=== PATIENT | female | born 1960 | race Two or more races ===

== ENCOUNTER 2023-04-14 04:30 | Inpatient (IN) | payer MEDICARE, OTHER ==
[~2023-04-14] VITALS: Ht 154.9 cm; Wt 53.5 kg
[2023-04-14 09:29] VITALS: BP 115/66; TEMP 98.4; O2SAT 98
[2023-04-14] MEDS ORDERED: TEMAZEPAM 7.5 MG CAPSULE PO PRN (10:30)
[2023-04-14] MEDS ORDERED: MAGNESIUM HYDROXIDE 30 ML UDC PO PRN (10:30)
[2023-04-14] MEDS ORDERED: ACETAMINOPHEN 325 MG TABLET PO PRN (10:30)
[2023-04-14] MEDS ORDERED: MAG HYDROX/AL HYDROX/SIMETH 30 ML UDC PO PRN (10:30)
[2023-04-14] MEDS: BLOOD SUGAR DIAGNOSTIC 1 EACH STRIP IN ONE (10:43)
[2023-04-14] MEDS ORDERED: hydrALAZINE HCL 25 MG TABLET PO PRN (11:30)
[2023-04-14] MEDS: risperiDONE-M 0.5 MG TAB.RAPDIS PO SCH (13:00)
[2023-04-14] MEDS ORDERED: MELO-105 PO (13:12)
[2023-04-14] MEDS ORDERED: TRAM50TA2 PO (13:12)
[2023-04-14] MEDS ORDERED: MEGE400O5 PO (13:12)
[2023-04-14] MEDS ORDERED: SITA50TA PO (13:12)
[2023-04-14] MEDS ORDERED: LOPE2TAB23 PO (13:12)
[2023-04-14] MEDS ORDERED: ONDA4TAB5 PO (13:12)
[2023-04-14] MEDS ORDERED: MULT-366 PO (13:12)
[2023-04-14] MEDS ORDERED: METF-440 PO (13:12)
[2023-04-14] MEDS ORDERED: POLY50DR EACHEYE (13:12)
[2023-04-14] MEDS ORDERED: OXYB5TAB16 PO (13:12)
[2023-04-14] MEDS ORDERED: MAGN400T8 PO (13:12)
[2023-04-14] MEDS ORDERED: ACET-868 PO (13:12)
[2023-04-14] MEDS ORDERED: GUAI-1189 PO (13:12)
[2023-04-14] MEDS ORDERED: DOCU100T2 PO (13:12)
[2023-04-14] MEDS ORDERED: CALC-343 PO (13:12)
[2023-04-14] MEDS ORDERED: METO-357 PO (13:12)
[2023-04-14] MEDS ORDERED: LEVO50TA PO (13:12)
[2023-04-14] MEDS ORDERED: SIME80TA66 PO (13:12)
[2023-04-14 16:00] VITALS: BP 105/54; TEMP 98.6; O2SAT 98
[2023-04-14 20:00] VITALS: BP 112/71; TEMP 98.1; O2SAT 100
[2023-04-14 20:06] VITALS: BP 112/71; TEMP 98.1; O2SAT 100
[2023-04-15 08:00] VITALS: BP 139/89; TEMP 97.6; O2SAT 98
[2023-04-15 15:29] LABS: CHOLESTEROL 186 mg/dL (<200); HDL CHOLESTEROL 50 mg/dL (40-60); LDL 116 mg/dL (0-99); TRIGLYCERIDES 122 mg/dL (30-150)
[2023-04-15 15:30] LABS: ALBUMIN 3.5 g/dL (3.4-5.0); BILIRUBIN,TOTAL 0.3 mg/dL (0.2-1.0); CALCIUM, SERUM 9.1 mg/dL (8.5-10.1); CREATININE 0.8 mg/dL (0.6-1.3); POTASSIUM 3.8 mmol/L (3.5-5.1); TOTAL PROTEIN, SERUM 7.6 g/dL (6.4-8.2)
[2023-04-15 16:00] VITALS: BP 109/64; TEMP 97.8; O2SAT 99
[2023-04-15] MEDS ORDERED: POLYVINYL ALCOHOL/POVIDONE 0.4 ML DROPERETTE EACHEYE PRN (22:00)
[2023-04-15] MEDS ORDERED: TRAMADOL HCL 50 MG TABLET PO PRN (22:00)
[2023-04-15] MEDS ORDERED: SIMETHICONE 80 MG TAB.CHEW ONE (22:29)
[2023-04-15] MEDS: SIMETHICONE 80 MG TAB.CHEW PO SCH (22:32)
[2023-04-16 08:00] VITALS: BP 117/72; TEMP 97.8; O2SAT 100
[2023-04-16] MEDS: METFORMIN 500 MG TABLET PO SCH (08:42)
[2023-04-16] MEDS: LEVOTHYROXINE SODIUM 50 MCG TABLET PO SCH (08:43)
[2023-04-16] MEDS: MAGNESIUM OXIDE 400 MG TABLET PO SCH (08:47)
[2023-04-16] MEDS: MEGESTROL ACETATE SUSP 400 MG/10 ML UDC PO SCH (08:47)
[2023-04-16] MEDS: MELOXICAM 7.5 MG TABLET PO SCH (08:48)
[2023-04-16] MEDS: LINAGLIPTIN 5 MG TABLET PO SCH (08:48)
[2023-04-16] MEDS: MULTIVITAMINS,THERAGRAN 1 UDTAB TABLET PO SCH (08:48)
[2023-04-16] MEDS: DOCUSATE SODIUM 100 MG CAPSULE PO SCH (08:48)
[2023-04-16] MEDS: CALCIUM CARBONATE 500 MG TAB.CHEW PO SCH (08:48)
[2023-04-16] MEDS: OXYBUTYNIN CHLORIDE 5 MG TABLET PO SCH (08:49)
[2023-04-16] MEDS: METOPROLOL SUCCINATE 50 MG TAB.SR.24H PO SCH (08:51)
[2023-04-16] MEDS: BENZTROPINE MESYLATE (1 MG) 1 MG TABLET PO SCH (12:02)
[2023-04-16 16:00] VITALS: BP 100/69; TEMP 98; O2SAT 99
[2023-04-16 20:00] VITALS: BP 102/61; TEMP 97.9; O2SAT 100
[2023-04-16] MEDS: risperiDONE 1 MG TABLET PO SCH (21:07)
[2023-04-17 08:00] VITALS: BP 145/79; TEMP 98.6; O2SAT 100
[2023-04-17] MEDS: risperiDONE-M 0.5 MG TAB.RAPDIS PO SCH (08:04)
[2023-04-17 16:00] VITALS: BP 128/72; TEMP 98.1; O2SAT 100
[2023-04-17 20:00] VITALS: BP 125/74; TEMP 98.1; O2SAT 100
[2023-04-17] MEDS: ATORVASTATIN 10 MG TABLET PO SCH (22:22)
[2023-04-18 08:00] VITALS: BP 99/75; TEMP 98; O2SAT 100
[2023-04-18 16:00] VITALS: BP 106/66; TEMP 97.8; O2SAT 97
[2023-04-18 21:08] VITALS: BP 116/64; TEMP 98.2; O2SAT 98
[2023-04-19 08:00] VITALS: BP 111/99; TEMP 98.1; O2SAT 100
[2023-04-19 16:00] VITALS: BP 114/72; TEMP 98; O2SAT 100
[2023-04-19] MEDS: risperiDONE-M 0.5 MG TAB.RAPDIS PO SCH (21:18)
[2023-04-19 21:51] VITALS: BP 123/82; TEMP 98; O2SAT 100
[2023-04-20 08:00] VITALS: BP 125/69; TEMP 98.6; O2SAT 100
[2023-04-20] MEDS: risperiDONE-M 0.5 MG TAB.RAPDIS PO SCH (13:00)
[2023-04-20] MEDS: BENZTROPINE MESYLATE (1 MG) 1 MG TABLET PO SCH (13:00)
[2023-04-20 16:00] VITALS: BP 109/56; TEMP 98.7; O2SAT 99
[2023-04-20 20:22] VITALS: BP 111/67; TEMP 97.9; O2SAT 100
[2023-04-21 08:00] VITALS: BP 100/72; TEMP 98.1; O2SAT 99
[2023-04-21 16:00] VITALS: BP 112/61; TEMP 98.6; O2SAT 100
[2023-04-22 08:00] VITALS: BP 111/64; TEMP 98.1; O2SAT 100
[2023-04-22 16:00] VITALS: BP 121/81; TEMP 98.1; O2SAT 98
[2023-04-23 08:00] VITALS: BP 114/73; TEMP 98.9; O2SAT 100
[2023-04-23 16:00] VITALS: BP 116/91; TEMP 98; O2SAT 99
[2023-04-23 20:00] VITALS: BP 113/78; TEMP 98.1; O2SAT 100
[2023-04-24 08:00] VITALS: BP 107/63; TEMP 98; O2SAT 100
[2023-04-24 16:00] VITALS: BP_SYST 101; BP_SYST 107; BP_DIAS 50; BP_DIAS 76; TEMP 97.6; TEMP 97.9; O2SAT 100; O2SAT 97
[2023-04-24 20:00] VITALS: BP 108/52; TEMP 98.1; O2SAT 99
[2023-04-25 08:00] VITALS: BP 122/75; TEMP 98.2; O2SAT 97
[2023-04-25 16:00] VITALS: BP 105/89; TEMP 98.1; O2SAT 97
[2023-04-25 20:53] VITALS: BP 108/56; TEMP 98.1; O2SAT 100
[2023-04-26 08:00] VITALS: BP 114/65; TEMP 97.9; O2SAT 99
[2023-04-26 16:00] VITALS: BP 112/62; TEMP 97.7; O2SAT 100
[2023-04-26 20:30] VITALS: BP 129/85; TEMP 98; O2SAT 100
[2023-04-27] MEDS: LORAZEPAM 0.5 MG TABLET PO PRN (03:14)
[2023-04-27 08:00] VITALS: BP 100/78; TEMP 98; O2SAT 100
[2023-04-27 09:04] VITALS: BP 100/78
== END 2023-04-27 14:25 | DRG 885 ==
LOC: GPS 08:59
PROVIDERS: ADMIT Psychiatry & Neurology Psychosomatic Medicine; ATTEND Internal Medicine
DX: F20.9 Schizophrenia, unspecified (principal); F84.0 Autistic disorder; Z88.0 Allergy status to penicillin; E78.5 Hyperlipidemia, unspecified; L84 Corns and callosities; M20.41 Other hammer toe(s) (acquired), right foot; M20.42 Other hammer toe(s) (acquired), left foot; Z73.6 Limitation of activities due to disability; E11.9 Type 2 diabetes mellitus without complications; Z20.822 Contact with and (suspected) exposure to COVID-19; F03.90 Unspecified dementia, unspecified severity, without behavioral disturbance, psychotic disturbance, mood disturbance, and anxiety
CPT/HCPCS: 36415; 80053-TC; 80061-TC; 82962-TC